=== PATIENT | female | born 1990 | race African-American/Black ===

== ENCOUNTER 2020-11-19 09:33 | Emergency (ER) | payer OTHER ==
--- OUTSIDE RECORDS SUMMARY | 2020-11-19 09:36 | XMS REPORT | Continuity of Care Document ---
:1990 Author Organization [facility] t Address [address] [place] [address] Care Team Providers Name Role Phone Sharpless Primary Care Physician URALIL Attending Clinician Unavailable URALIL Admitting Clinician Unavailable Problems Condition Condition Condition Status Onset Resolution Last Treating Co mments Source Name Details Category Date Date Treatment Clinician Date 39 weeks 39 weeks Disease Active 2016-06 [facility] [place] [facility] - of of 00:00: Medical 00 Cent er Disease Active 2016-06 [facility] St contractio contractio 06-29 [facility] - ns ns 00:00: Medical [address] [place] [address] H/O H/O Disease Active 2016-[address] [facility] - section section 00:00: Medical 00 [place] Disease Active [facility] - 00:00: Medical [address] [place] [address] Allergies, Adverse Reactions, Alerts This patient has no known allergies or adverse reactions. Family History Family Member Diagnosis Comments Start Date Stop Date Source Natural brother No Known Problem [facility] Natural father No Known Problem [facility] Natural mother No Known Problem [facility] Natural sister No Known Problem [facility] Natural son No Known Problem [facility] Social History Social Habit Start Date Stop Date Quantity Comments Source Sex Assigned At [facility] Alcohol intake 2017-05-25 2017-05-25 Current [facility] es - 00:00:00 00:00:00 non-drinker of Medical Ce nter alcohol (finding) Tobacco use and 2017-05-25 2017-05-25 Never used [facility] kes - exposure 00:00:00 [facility]:00:00 [facility] Center Smoking Status Start Date Stop Date Source Never smoker [facility] kes [facility] Center Medications Ordered Filled Start Stop Current Ordering Indication Dosage Frequency Signature Comments Components Source Medication Medication Date Date Medication? Clinician (SIG) Name Name 2016-06 Yes 1{tbl} QD Take [address] VITS96/IRON 2-02 tablet by Sydni es - FUM/FOLIC 16:55: mouth Medical ( 27 daily. Center VITAMIN W/IRON-DURAN TE) 27 mg iron- 800 mcg Tab Procedures This patient has no known procedures. Results Test Description Test Time Test Comments Results Result Comments Source CBC W/PLT COUNT & AUTO DIFFERENTIAL 2017-05-26 04:58:00 Test Item Value Reference Range Interpretation Comme nts WHITE BLOOD CELL COUNT (BEAKER) (test code = 775) 9.1 K/ L 4.0- 10.0 RED BLOOD CELL COUNT (BEAKER) (test code = 761) 3.98 M/ L 4.00-5 .00 L HEMOGLOBIN (BEAKER) (test code = 410) 10.9 GM/DL 12.0-15.0 L HEMATOCRIT (BEAKER) (test code = 411) 33.3 % 36.0-45.0 L MEAN CORPUSCULAR VOLUME (BEAKER) (test code = 753) 83.6 fL 82. 0-99.0 MEAN CORPUSCULAR HEMOGLOBIN (BEAKER) (test code = 751) 27.3 pg 27.0-33.0 MEAN CORPUSCULAR HEMOGLOBIN CONC (BEAKER) (test code = 752) 32.6 GM/DL 32.0-36.0 RED CELL DISTRIBUTION WIDTH (BEAKER) (test code = 412) 12.6 % 10.3-14.2 PLATELET COUNT (BEAKER) (test code = 756) 171 K/CU MM 150-430 MEAN PLATELET VOLUME (BEAKER) (test code = 754) 8.5 fL 6.5-10 .5 NEUTROPHILS RELATIVE PERCENT (BEAKER) (test code = 429) 74 % LYMPHOCYTES RELATIVE PERCENT (BEAKER) (test code = 430) 18 % MONOCYTES RELATIVE PERCENT (BEAKER) (test code = 431) 8 % EOSINOPHILS RELATIVE PERCENT (BEAKER) (test code = 432) 0 % BASOPHILS RELATIVE PERCENT (BEAKER) (test code = 437) 0 % NEUTROPHILS ABSOLUTE COUNT (BEAKER) (test code = 670) 6.80 K/ L 1.80-8.00 LYMPHOCYTES ABSOLUTE COUNT (BEAKER) (test code = 414) 1.60 K/ L 1.48-4.50 MONOCYTES ABSOLUTE COUNT (BEAKER) (test code = 415) 0.70 K/ L 0. 00-1.30 EOSINOPHILS ABSOLUTE COUNT (BEAKER) (test code = 416) 0.00 K/ L 0.00-0.50 BASOPHILS ABSOLUTE COUNT (BEAKER) (test code = 417) 0.00 K/ L 0. 00-0.20 HEPATITIS B SURFACE [id number] 12:34:00 Test Item Value Reference Range Interpretation Comments HEPATITIS B SURFACE ANTIGEN (2) Nonreactive Nonreactive (BEAKER) (test code = 2585) CBC W/PLT COUNT & AUTO [id number] 10:48:00 Test Item Value Reference Range Interpretation Comments WHITE BLOOD CELL COUNT (BEAKER) 9.5 K/ L 4.0-10.0 (test code = 775) RED BLOOD CELL COUNT (BEAKER) 4.41 M/ L 4.00-5.00 (test code = 761) HEMOGLOBIN (BEAKER) (test code = 12.0 GM/DL 12.0-15.0 410) HEMATOCRIT (BEAKER) (test code = 36.9 % 36.0-45.0 411) MEAN CORPUSCULAR VOLUME (BEAKER) 83.7 fL 82.0-99.0 (test code = 753) MEAN CORPUSCULAR HEMOGLOBIN 27.2 pg 27.0-33.0 (BEAKER) (test code = 751) MEAN CORPUSCULAR HEMOGLOBIN CONC 32.5 GM/DL 32.0-36.0 (BEAKER) (test code = 752) RED CELL DISTRIBUTION WIDTH 13.9 % 10.3-14.2 (BEAKER) (test code = 412) PLATELET COUNT (BEAKER) (test 200 K/CU MM 150-430 code = 756) MEAN PLATELET VOLUME (BEAKER) 7.9 fL 6.5-10.5 (test code = 754) NUCLEATED RED BLOOD CELLS 0 /100 WBC 0-0 (BEAKER) (test code = 413) NEUTROPHILS RELATIVE PERCENT 72 % (BEAKER) (test code = 429) LYMPHOCYTES RELATIVE PERCENT 21 % (BEAKER) (test code = 430) MONOCYTES RELATIVE PERCENT 6 % (BEAKER) (test code = 431) EOSINOPHILS RELATIVE PERCENT 0 % (BEAKER) (test code = 432) BASOPHILS RELATIVE PERCENT 0 % (BEAKER) (test code = 437) NEUTROPHILS ABSOLUTE COUNT 6.90 K/ L 1.80-8.00 (BEAKER) (test code = 670) LYMPHOCYTES ABSOLUTE COUNT 2.00 K/ L 1.48-4.50 (BEAKER) (test code = 414) MONOCYTES ABSOLUTE COUNT (BEAKER) 0.60 K/ L 0.00-1.30 (test code = 415) EOSINOPHILS ABSOLUTE COUNT 0.00 K/ L 0.00-0.50 (BEAKER) (test code = 416) BASOPHILS ABSOLUTE COUNT (BEAKER) 0.00 K/ L 0.00-0.20 (test code = 417) GROUP B STREP CULTURE + [id number] 15:05:00 Test Item Value Reference Range Interpretation Comments CULTURE (BEAKER) No beta-hemolytic (test code = 1095) streptococcus isolated GRAM STAIN RESULT <1+ White blood cells (BEAKER) (test code seen = 1123) GRAM STAIN RESULT 4+ Mixed jeannine (BEAKER) (test code = 64025) URINE [id number] 07:55:00 Test Item Value Reference Range Interpretation Comments CULTURE (BEAKER) (test code = 1095) No growth [id number] 13:51:00 Test Item Value Reference Range Interpretation Comments RPR SCREEN (BEAKER) (test code = Nonreactive Nonreactive 420) HIV-1 ANTIGEN WITH HIV-1/2 [id number] 22:19:00 Test Item Value Reference Range Interpretation Comments HIV-1 ANTIGEN WITH HIV 1\T\2 Nonreactive Nonreactive ANTIBODY (2) (BEAKER) (test code = 2586) HEPATITIS B SURFACE [id number] 22:17:00 Test Item Value Reference Range Interpretation Comments HEPATITIS B SURFACE ANTIGEN (2) Nonreactive Nonreactive (BEAKER) (test code = 2585) TSH/FREE T4 IF [id number] 22:16:00 Test Item Value Reference Range Interpretation Comments THYROID STIMULATING HORMONE 1.48 uIU/mL 0.35-5.50 (BEAKER) (test code = 772) URINALYSIS W/ [id number] 21:53:00 Test Item Value Reference Range Interpretation Comments COLOR (BEAKER) (test code = Yellow 470) CLARITY (BEAKER) (test code = Clear 469) SPECIFIC GRAVITY UA (BEAKER) 1.015 1.001-1.035 (test code = 468) PH UA (BEAKER) (test code = 6.0 5.0-8.0 467) PROTEIN UA (BEAKER) (test code Negative Negative = 464) GLUCOSE UA (BEAKER) (test code Negative Negative = 365) KETONES UA (BEAKER) (test code >=80 mg/dL Negative A = 371) BILIRUBIN UA (BEAKER) (test Negative Negative code = 462) BLOOD UA (BEAKER) (test code = Negative Negative 461) NITRITE UA (BEAKER) (test code Negative Negative = 465) LEUKOCYTE ESTERASE UA (BEAKER) Negative Negative (test code = 466) UROBILINOGEN UA (BEAKER) (test 0.2 mg/dL 0.2-1.0 code = 463) BACTERIA (BEAKER) (test code = Few 517) RBC UA-MANUAL (BEAKER) (test None Seen /HPF code = 1659) WBC UA-MANUAL (BEAKER) (test None Seen /HPF code = 1661) SQUAMOUS EPITHELIAL MANUAL 5-10 /HPF (BEAKER) (test code = 1663) SOURCE(BEAKER) (test code = 2795) CBC W/PLT COUNT & AUTO [id number] 21:42:00 Test Item Value Reference Range Interpretation Comments WHITE BLOOD CELL COUNT (BEAKER) 10.4 K/ L 4.0-10.0 H (test code = 775) RED BLOOD CELL COUNT (BEAKER) 4.22 M/ L 4.00-5.00 (test code = 761) HEMOGLOBIN (BEAKER) (test code = 11.7 GM/DL 12.0-15.0 L 410) HEMATOCRIT (BEAKER) (test code = 35.8 % 36.0-45.0 L 411) MEAN CORPUSCULAR VOLUME (BEAKER) 85.0 fL 82.0-99.0 (test code = 753) MEAN CORPUSCULAR HEMOGLOBIN 27.8 pg 27.0-33.0 (BEAKER) (test code = 751) MEAN CORPUSCULAR HEMOGLOBIN CONC 32.8 GM/DL 32.0-36.0 (BEAKER) (test code = 752) RED CELL DISTRIBUTION WIDTH 11.9 % 10.3-14.2 (BEAKER) (test code = 412) PLATELET COUNT (BEAKER) (test 179 K/CU MM 150-430 code = 756) MEAN PLATELET VOLUME (BEAKER) 8.4 fL 6.5-10.5 (test code = 754) NEUTROPHILS RELATIVE PERCENT 75 % (BEAKER) (test code = 429) LYMPHOCYTES RELATIVE PERCENT 17 % (BEAKER) (test code = 430) MONOCYTES RELATIVE PERCENT 8 % (BEAKER) (test code = 431) EOSINOPHILS RELATIVE PERCENT 1 % (BEAKER) (test code = 432) BASOPHILS RELATIVE PERCENT 0 % (BEAKER) (test code = 437) NEUTROPHILS ABSOLUTE COUNT 7.70 K/ L 1.80-8.00 (BEAKER) (test code = 670) LYMPHOCYTES ABSOLUTE COUNT 1.80 K/ L 1.48-4.50 (BEAKER) (test code = 414) MONOCYTES ABSOLUTE COUNT (BEAKER) 0.80 K/ L 0.00-1.30 (test code = 415) EOSINOPHILS ABSOLUTE COUNT 0.10 K/ L 0.00-0.50 (BEAKER) (test code = 416) BASOPHILS ABSOLUTE COUNT (BEAKER) 0.00 K/ L 0.00-0.20 (test code = 417) WET [id number] 21:41:00 Test Item Value Reference Range Interpretation Comments WBC WET PREP Few white blood cells (BEAKER) (test code seen = 528) CLUE CELLS (BEAKER) No clue cells seen (test code = 526) YEAST WET PREP No budding yeast seen (BEAKER) (test code = 530) TRICH WET PREP No Trichomonas seen (BEAKER) (test code = 531) BACT WET PREP Few bacteria seen (BEAKER) (test code = 532)
[2020-11-19 10:13] LABS: Urine Blood Negative (Negative); Urine Glucose Negative (Negative); Urine Protein 1+ (Negative); Urine Specific Gravity >=1.030 (1.005-1.030)
[2020-11-19] MEDS ORDERED: ONDANSETRON 4 MG (ODT) TAB ONE (10:24)
[2020-11-19 10:32] LABS: Urine Specific Gravity/Preg >1.030 (1.005-1.030)
--- NOTE | 2020-11-19 11:24 | ER ---
Nurse's Notes [facility] Name: Kyle Dowd Age: 30 yrs Sex: Female : 1990 Arrival Date: 11/19/2020 Time: 09:35 Bed 23 Private MD: Diagnosis: Vomiting Presentation: 11/19 09:50 Chief complaint: Patient states: C/O nausea/vomiting X 3 days. Reports blood tinged ld1 vomit. Coronavirus screen: At this time, the client does not indicate any symptoms associated with coronavirus-19. Ebola Screen: No symptoms or risks identified at this time. Initial Sepsis Screen: Does the patient meet any 2 criteria? No. Patient's initial sepsis screen is negative. Does the patient have a suspected source of infection? No. Patient's initial sepsis screen is negative. Risk Assessment: Do you want to hurt yourself or someone else? Patient reports no desire to harm self or others. Onset of symptoms was November 16, 2020. 09:50 Method Of Arrival: Ambulatory ld1 09:50 Acuity: AVA 3 ld1 Triage Assessment: 09:54 General: Appears in no apparent distress. comfortable, Behavior is calm, cooperative, ld1 appropriate for age. Pain: Denies pain. EENT: No signs and/or symptoms were reported regarding the EENT system. Neuro: Level of Consciousness is awake, alert, obeys commands, Oriented to person, place, time, situation, Appropriate for age. Cardiovascular: Capillary refill < 3 seconds Patient's skin is warm and dry. Respiratory: Airway is patent Respiratory effort is even, unlabored, Respiratory pattern is regular, symmetrical. GI: Abdomen is flat, non-distended, Reports intolerance of fluids, intolerance of food, nausea, vomiting, since 11/16/2020. GI:. :. : No signs and/or symptoms were reported regarding the genitourinary system. :. Derm: No signs and/or symptoms reported regarding the dermatologic system. Musculoskeletal: No signs and/or symptoms reported regarding the musculoskeletal system. 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 - Social history:: Smoking status: Patient/guardian denies using tobacco, Stopped _ months ago 2. Screenin:57 Abuse screen: Denies threats or abuse. Denies injuries from another. Nutritional ld1 screening: No deficits noted. Tuberculosis screening: No symptoms or risk factors identified. Fall Risk None identified. Assessment: 09:57 Reassessment: See triage assessment. GI: Abdomen is flat, non-distended, Reports ld1 intolerance of fluids, intolerance of food, nausea, vomiting. 10:42 Reassessment: Patient appears in no apparent distress at this time. No changes from ld1 previously documented assessment. Patient and/or family updated on plan of care and expected duration. Pain level reassessed. Patient denies pain at this time. 11:20 Reassessment: Patient appears in no apparent distress at this time. No changes from ld1 previously documented assessment. Patient and/or family updated on plan of care and expected duration. Pain level reassessed. Waiting on results in bed. Denies concerns at this time. Vital Signs: 09:50 BP 123 / 77; Pulse 90; Resp 18; Temp 98.6; Pulse Ox 100% on R/A; Weight 68.04 kg; ld1 Height 5 ft. 1 in. (154.94 cm); Pain 0/10; 10:41 BP 125 / 75; Pulse 86; Resp 18; Pulse Ox 100% on R/A; ld1 11:20 BP 122 / 78; Pulse 82; Resp 18; Pulse Ox 100% on R/A; ld1 09:50 Body Mass Index 28.34 (68.04 kg, 154.94 cm) ld1 ED Course: 09:35 Patient arrived in ED. mr 09:42 Bishop Roth PA is PHCP. jmm 09:42 Leander Rodriguez MD is Attending Physician. jmm 09:44 Kalie Horton, JESUS is Primary Nurse. ld1 09:53 Triage completed. ld1 09:54 Arm band placed on right wrist. Patient placed in an exam room, on a stretcher, on ld1 pulse oximetry, Emesis basin given. 09:57 Patient has correct armband on for positive identification. Bed in low position. Call ld1 light in reach. Side rails up X2. Pulse ox on. NIBP on. Door closed. Noise minimized. Warm blanket given. 11:30 No provider procedures requiring assistance completed. Patient did not have IV access ld1 during this emergency room visit. Administered Medications: 10:05 Drug: Zofran (Ondansetron) 4 mg Route: PO; ld1 10:12 Follow up: Response: No adverse reaction; Nausea is decreased ld1 Outcome: :23 Discharge ordered by MD. nova 11:30 Discharged to home ambulatory. ld1 11:30 Condition: stable 11:30 Discharge instructions given to patient, Instructed on discharge instructions, follow up and referral plans. medication usage, Demonstrated understanding of instructions, follow-up care, medications. 11:30 Patient left the ED. ld1 Signatures: Bishop Roth PA PA jmm Rivera, Mary mr Kalie Hroton, RN RN ld1
--- NOTE | 2020-11-19 11:24 | EDPHYS ---
Physician Documentation [facility] Name: Kyle Dowd Age: 30 yrs Sex: Female : 1990 Arrival Date: 11/19/2020 Time: 09:35 Bed 23 Private MD: ED Physician Leander Rodriguez HPI: 11/19 10:05 This 30 yrs old Black Female presents to ER via Ambulatory with complaints of 8wks jmm , Vomiting. 10:05 Onset: The symptoms/episode began/occurred gradually. Possible causes: . The jmm symptoms are aggravated by nothing. The symptoms are alleviated by nothing. Associated signs and symptoms: Pertinent negatives: abdominal pain. This is a 30 year old female currently 6 to 8 weeks that presents to the ED with complaints of vomiting. Denies pelvic pain, vaginal bleeding. Patient has not established herself with an OB at this time. . 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 - Social history:: Smoking status: Patient/guardian denies using tobacco, Stopped _ months ago 2. ROS: 10:05 Constitutional: Negative for fever, chills, and weight loss, Cardiovascular: Negative jmm for chest pain, palpitations, and edema, Respiratory: Negative for shortness of breath, cough, wheezing, and pleuritic chest pain. 10:05 Abdomen/GI: Positive for nausea and vomiting. 10:05 All other systems are negative. Exam: 10:05 Constitutional: This is a well developed, well nourished patient who is awake, alert, jmm and in no acute distress. Head/Face: atraumatic. Eyes: EOMI, no conjunctival erythema appreciated ENT: Moist Mucus Membranes Neck: Trachea midline, Supple Chest/axilla: Normal chest wall appearance and motion. Cardiovascular: Regular rate and rhythm. No edema appreciated Respiratory: Normal respirations, no respiratory distress appreciated 10:05 Back: Normal ROM Skin: General appearance color normal MS/ Extremity: Moves all extremities, no obvious deformities appreciated, no edema noted to the lower extremities Neuro: Awake and alert, normal gait Psych: Behavior is normal, Mood is normal, Patient is cooperative and pleasant 10:05 Abdomen/GI: Inspection: abdomen appears normal, Bowel sounds: normal, Palpation: abdomen is soft and non-tender, in all quadrants. Vital Signs: 09:50 BP 123 / 77; Pulse 90; Resp 18; Temp 98.6; Pulse Ox 100% on R/A; Weight 68.04 kg; ld1 Height 5 ft. 1 in. (154.94 cm); Pain 0/10; 10:41 BP 125 / 75; Pulse 86; Resp 18; Pulse Ox 100% on R/A; ld1 11:20 BP 122 / 78; Pulse 82; Resp 18; Pulse Ox 100% on R/A; ld1 09:50 Body Mass Index 28.34 (68.04 kg, 154.94 cm) ld1 MDM: 10:03 Patient medically screened. javad 11:22 Data reviewed: vital signs, nurses notes. Counseling: I had a detailed discussion with rohini the patient and/or guardian regarding: the historical points, exam findings, and any diagnostic results supporting the discharge/admit diagnosis, lab results, the need for outpatient follow up, to return to the emergency department if symptoms worsen or persist or if there are any questions or concerns that arise at home. ED course: Patient able to tolerate PO in the ED. No abd pain on palpation. Patient advised to take doxylamine and b6 q pm. Will follow up with ob and otherwise given strict return precautions. patient understood and agrees with the plan of care. . 11/19 10:12 Order name: Urine Dipstick-Ancillary; Complete Time: 10:19 EDMS 11/19 10:13 Order name: Urine --Ancillary (enter results); Complete Time: 10:39 bd 11/19 10:05 Order name: Urine Dipstick-Ancillary (obtain specimen); Complete Time: 10:12 [facility] Administered Medications: 10:05 Drug: Zofran (Ondansetron) 4 mg Route: PO; ld1 10:12 Follow up: Response: No adverse reaction; Nausea is decreased ld1 Disposition: 11/19/20 11:23 Discharged to Home. Impression: Vomiting. - Condition is Stable. - Discharge Instructions: Eating Plan for Hyperemesis Gravidarum. - Prescriptions for Zofran ODT 4 mg Oral tablet,disintegrating - place 1 tablet by TRANSLINGUAL route every 4-6 hours; 20 tablet. - Medication Reconciliation Form, Thank You Letter, Antibiotic Education, Prescription Opioid Use form. - Work release form (11/19/20 11:38). rohini - Follow up: Private Physician; When: 1 - 2 days; Reason: Recheck today's complaints, Continuance of care, Re-evaluation by your physician. - Notes: Please take unisom (Doxylamine) and vitamin B6 at night before bed. Please return to the ER if you develop abdominal pain, unable to keep fluids down, or if you have any other concerns. Addendum: 11/27/2020 19:02 Co-signature as Attending Physician, Leander Rodriguez MD. gibran rae Signatures: Dispatcher [employer] EDLeander Haines MD MD pkl Mickail, Joel, PA PA Kalie Orourke RN RN ld1 Corrections: (The following items were deleted from the chart) 11/19 11:30 11:23 11/19/2020 11:23 Discharged to Home. Impression: Vomiting. Condition is Stable. ld1 Forms are Medication Reconciliation Form, Thank You Letter, Antibiotic Education, Prescription Opioid Use. Follow up: Private Physician; When: 1 - 2 days; Reason: Recheck today's complaints, Continuance of care, Re-evaluation by your physician. rohini
[2020-11-19 11:37] VITALS: TEMP 98.6; O2SAT 100
[2020-11-19 11:40] VITALS: BP 122/78
== END 2020-11-19 11:30 | disposition home or self-care (01) ==
LOC: ER 09:33
DX: O21.9 Vomiting of pregnancy, unspecified (principal); Z87.891 Personal history of nicotine dependence; Z3A.08 8 weeks gestation of pregnancy
CPT/HCPCS: 81003; 81025; 99283